=== PATIENT | male | born 1975 | race African-American/Black ===

== ENCOUNTER 2018-09-10 13:37 | Observation (INO) ==
[2018-09-10] MEDS ORDERED: Sodium Chloride 0.9% 1,000 ML PRIMARY IV ONE ×2 (13:55→15:17)
[2018-09-10] MEDS ORDERED: ASPIRIN 81 MG (BABY) CHEWABLE TABLET PO ONE (13:55)
--- NOTE | 2018-09-10 14:01 | EKG ---
[address] [address] Measurements Intervals [place] Rate: 116 P: 59 PA: 132 QRS: 86 QRSD: 90 T: -25 QT: 295 QTc: 364 Interpretive Statements SINUS TACHYCARDIA SEPTAL MYOCARDIAL INFARCTION OF INDETERMINATE AGE MODERATE T-WAVE ABNORMALITY, CONSIDER INFERIOR ISCHEMIA No previous ECG available for comparison Electronically Signed On 09-10-18 14:25:27 MST by Lonnie Thrasher [id number]
[2018-09-10 14:02] LABS: BASOPHILS # (AUTO) 0 10*3/UL; BASOPHILS % (AUTO) 0 % (0-1); EOSINOPHILS # (AUTO) 0.01 10*3/UL; EOSINOPHILS % (AUTO) 0.2 % (0-8); Hematocrit [HCT] 49.5 % (42.0-52.0); Hemoglobin [HGB] 16.9 g/dL (14.0-18.0); LYMPHOCYTES # (AUTO) 0.26 10*3/uL; MEAN CORPUSCULAR HEMOGLOBIN 30.6 PG (27-31); MEAN CORPUSCULAR HGB CONC 34.1 g/dL (33-37); MEAN CORPUSCULAR VOLUME 89.5 FL (80-90); MEAN PLATELET VOLUME 9.2 FL (7.4-12.2); MONOCYTES # (AUTO) 0.24 10*3/UL (0.3-0.8); MONOCYTES % (AUTO) 4.3 % (5-15); NEUTROPHILS % (AUTO) 90.4 % (50-80); RED BLOOD COUNT 5.53 10^6/uL (4.70-6.10)
[2018-09-10 14:07] LABS: BUN/CREATININE RATIO 17.05 (6-20); SERUM ALBUMIN 4.1 g/dL (3.5-4.8)
[2018-09-10 14:29] LABS: PLATELET MORPHOLOGY COMMENT NORMAL MORPHOLOGY (NORM); RBC MORPHOLOGY COMMENT SEE COMMENTS (NORM); WBC MORPHOLOGY COMMENT NORMAL MORPHOLOGY (NORM)
[2018-09-10] MEDS ORDERED: Sodium Chloride 0.9% 1,000 ML PRIMARY IV SCH (15:17)
[2018-09-10] MEDS ORDERED: NITROGLYCERIN 0.4 MG SL TAB (BOTTLE OF 3) SL PRN (15:17)
[2018-09-10] MEDS ORDERED: LIDOCAINE W/ SODIUM BICARB 0.5 ML SYR SUBD PRN (15:17)
[2018-09-10] MEDS ORDERED: ONDANSETRON 4 MG/2 ML VIAL IVP PRN (15:17)
[2018-09-10] MEDS ORDERED: CALCIUM CARBONATE 500 MG (TUMS) CHEWABLE TABLET PO PRN (15:17)
[2018-09-10 15:31] LABS: CHOL/HDL RATIO 2.15 RATIO (0-4.0)
--- NOTE | 2018-09-10 15:38 | PDOC ---
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 He states it feels somewhat pressure-like. It was associated with some nausea, vomiting, and diarrhea. He's been around some people at the influenza although he states he's not had any fevers or cough. He states that he is not sure if anything an emergency room helped. But he states it felt very similar to his ruptured aorta and came in for evaluation. In the emergency room, he was found to be in renal failure and it is not known if this is acute or chronic. His electrolytes looked okay. No other additional workup was done for pulmonary emboli despite an elevated d- dimer. As he's got on the floor I have ordered a VQ scan. His initial troponin and EKG are negative for acute coronary syndrome. He was given aspirin and nitroglycerin in the emergency room. He's not sure if that really helped. 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 Past Medical History Medical History: 1. Dissected aorta, status post repair. 2. Hypertension Surgical History: 1. Sternotomy with aortic dissection repair Pertinent Family History: He states his family history is negative for diabetes and heart disease. Past Social History: Single. Works here in [place] the [employer]. Has children that are described as healthy. Occasionally smokes tobacco, drinks alcohol, and admits to doing and see, cocaine, amphetamines from time to time. He states his last use was about a week ago. Tobacco Use: Current Some Day Smoker In the Past 12 Months, Have Used or Abuse Any of the Following Substance: Cocaine, Marijuana Alcohol Use: Occasionally Medication / Allergies Home Medications: Home Medications Medication Instructions Recorded Confirmed Type Carvedilol 12.5 mg PO DAILY 09/10/18 09/10/18 History Clonidine HCl 0.1 mg PO DAILY 09/10/18 09/10/18 History Metoprolol Succinate 25 mg PO DAILY 09/10/18 09/10/18 History Allergies/Adverse Reactions: Allergies Allergy/AdvReac Type Severity Reaction Status Date / Time Iodinated Contrast- Oral and Allergy Other : Verified 09/10/18 13:53 IV Dye See Comment nebivolol [From Bystolic] AdvReac Headache Verified 09/10/18 13:52 Review of Systems - Review of Systems All Systems: Reviewed & No Additional Complaints Except as Stated (I did a 12 point review systems and it was negative other than that discussed below and in the history of present illness.) - Genitourinary Genitourinary: REPORTS: Other (Complains of increased urinary frequency) Exam - Vitals Vital Signs: Vital Signs Temperature 96.8 F Temperature Source Temporal Artery Scan Pulse Rate [Pulse Oximeter] 118 Respiratory Rate 18 Blood Pressure [Left Arm] 169/111 Pulse Ox 96 Oxygen Delivery Method Room Air Height 5 ft 9 in Weight 226 lb 4 oz - General General Appearance: No Acute Distress, Cooperative - Head Head Exam: Normal Inspection, Normocephalic, Atraumatic - Eye Eye Exam: POSITIVE: No Scleral Icterus - ENT ENT Exam: POSITIVE: Mucous Membranes Moist - Neck Neck Exam: JVP is not Raised - Respiratory Respiratory Exam: POSITIVE: Clear to Auscultation - Bilaterally, Breathing Non Labored, Normal to Percussion and Palpation - Cardiovascular Cardiovascular Exam: POSITIVE: No Clicks, No Gallops, No Rubs, Systolic Murmur (Left upper sternal border, 2/6 intensity), No JVD Additional Cardiovascular Details: Chest pain is not reproduced with palpation - GI/Abdominal GI/Abdominal Exam: POSITIVE: Normal Bowel Sounds, Non Tender, Non Distended, Soft - Rectal Rectal Exam: POSITIVE: Deferred - External Exam: POSITIVE: Deferred Exam: POSITIVE: Deferred - Extremities Extremities Exam: POSITIVE: No Clubbing Present, No Edema Present, No Cyanosis Present - Back Back Exam: POSITIVE: No CVA Tenderness - Neurological Neurological Exam: POSITIVE: Alert, Oriented x 3, No Facial Droop, Speech Intact / Clear, Moves All Extremities Equally - Psychiatric Psychiatric Exam: POSITIVE: Normal Affect, Normal Mood - Integumentary Integumentary Exam: POSITIVE: Normal Color, Warm, Dry, Intact Additional Integumentary Exam Details: Skin tattoos noted Results - Labs CBC and BMP: 09/10/18 13:45 09/10/18 13:45 Additional Lab Results: Laboratory Results 09/10/18 09/10/18 09/10/18 13:45 13:45 13:45 WBC 5.53 RBC 5.53 Hgb 16.9 Hct 49.5 MCV 89.5 MCH 30.6 MCHC 34.1 RDW Std Deviation 46.7 RDW Coeff of Gagan 14.2 Plt Count 203 MPV 9.2 Immature Gran % (Auto) 0.4 Neut % (Auto) 90.4 H Lymph % (Auto) 4.7 L Gibson % (Auto) 4.3 L Eos % (Auto) 0.2 Baso % (Auto) 0 Immature Gran # (Auto) 0.02 Neut # (Auto) 5.00 Lymph # (Auto) 0.26 Gibson # (Auto) 0.24 L Eos # (Auto) 0.01 Baso # (Auto) 0 WBC Morphology Comment Normal morphology Plt Morphology Comment Normal morphology RBC Morph Comment See comments PT INR D-Dimer 1.01 H Sodium 140 Potassium 4.0 Chloride 103 Carbon Dioxide 28 Anion Gap 9 BUN 29 H Creatinine 1.7 H Estimated GFR 44 BUN/Creatinine Ratio 17.05 Glucose 110 Calculated Osmolality 296.0 H Calcium 9.5 Total Bilirubin 1.0 AST 39 ALT 28 Alkaline Phosphatase 81 CK-MB (CK-2) Troponin I Total Protein 7.6 Albumin 4.1 Globulin 3.5 Albumin/Globulin Ratio 1.10 L Triglycerides Cholesterol LDL Cholesterol, Calc VLDL Cholesterol HDL Cholesterol Cholesterol/HDL Ratio 09/10/18 09/10/18 09/10/18 13:45 13:45 13:45 WBC RBC Hgb Hct MCV MCH MCHC RDW Std Deviation RDW Coeff of Gagan Plt Count MPV Immature Gran % (Auto) Neut % (Auto) Lymph % (Auto) Gibson % (Auto) Eos % (Auto) Baso % (Auto) Immature Gran # (Auto) Neut # (Auto) Lymph # (Auto) Gibson # (Auto) Eos # (Auto) Baso # (Auto) WBC Morphology Comment Plt Morphology Comment RBC Morph Comment PT 10.9 INR 1.07 D-Dimer Sodium Potassium Chloride Carbon Dioxide Anion Gap BUN Creatinine Estimated GFR BUN/Creatinine Ratio Glucose Calculated Osmolality Calcium Total Bilirubin AST ALT Alkaline Phosphatase CK-MB (CK-2) 0.38 Troponin I < 0.012 Total Protein Albumin Globulin Albumin/Globulin Ratio Triglycerides 93 Cholesterol 138 LDL Cholesterol, Calc 55.400 VLDL Cholesterol 18 HDL Cholesterol 64 Cholesterol/HDL Ratio 2.15 - EKG Data -: EKG Interpreted by Me Rate: Tachycardia EKG Shows Normal: Sinus Rhythm Assessment and Plan - Patient Problems (1) Chest pain Current Visit: Yes Status: Acute Code(s): R07.9 - Chest pain, unspecified Qualifiers: Chest pain type: precordial pain Qualified Code(s): R07.2 - Precordial pain (2) Stimulant abuse Current Visit: Yes Status: Acute Code(s): F15.10 - Other stimulant abuse, uncomplicated (3) Hypertension Current Visit: Yes Status: Acute Code(s): I10 - Essential (primary) hy pertension Qualifiers: Hypertension type: unspecified Qualified Code(s): I10 - Essential (primary) hypertension (4) History of aortic dissection Current Visit: Yes Status: Acute Code(s): Z86.79 - Personal history of other diseases of the circulatory system (5) Acute renal failure Current Visit: Yes Status: Acute Code(s): N17.9 - Acute kidney failure, unspecified Qualifiers: Acute renal failure type: unspecified Qualified Code(s): N17.9 - Acute kidney failure, unspecified - Assessment / Plan Additional Assessment/Plan Details: This is highly likely stimulant-induced chest pain, which is not treated the same as typical ischemic chest pain. I don't think the patient is at risk for several hemorrhage, so I think the dose of aspirin was probably okay. That being said, I'm going to hold off on that until we see a little bit more of what we have going on. In addition, I don't know if this is truly an elevated d-dimer in the setting of a pulmonary emboli. I somewhat doubt this clinically as he is not hypoxic, and before we start him on Lovenox and like to prove the point so we will order a VQ scan, particularly with the patient's complaints of chest pain and not having one done in the emergency room. I will go ahead and start nitroglycerin and benzodiazepines. Given stimulant abuse/recent use, get a urine drug screen and hold off on beta blockers due to potential for sympathomimetic overload with the beta blockers in the setting of cocaine use in particular. I admonished the patient to try to quit his drug use as it could kill him. Get a CT scan of the abdomen and pelvis without any contrast to look at the kidneys to make sure there is no obstructive uropathy. Try to get records from [facility] in [place] regarding his surgical repair in apparent kidney dysfunction that was recently diagnosed there per the patient's history to me check troponin later this afternoon. I will get an echocardiogram in the morning. Long-term, the patient may benefit from nitroglycerin for his blood pressure con trol due to his lifestyle. If any elevated troponins developed, transfer the patient to a facility with capacity analyst.
[2018-09-10 15:42] LABS: AMPHETAMINE SCREEN POSITIVE (NEG); CANNABINOID SCREEN,URINE NEGATIVE (NEG); COCAINE SCREEN POSITIVE (NEG); METHADONE URINE SCREEN NEGATIVE (NEG); METHAMPHETAMINES SCREEN,URINE POSITIVE (NEG); OPIATE SCREEN,URINE NEGATIVE (NEG); URINE SAMPLE TYPE CLEAN CATCH URINE
[2018-09-10] MEDS ORDERED: LORazepam 2 MG/1 ML VIAL IVP PRN (15:45)
[2018-09-10] MEDS ORDERED: NITROGLYCERIN SR 2.5 MG CAPSULE PO ONE (15:46)
[2018-09-10] MEDS ORDERED: [UNRECOGNIZED DRUG - OTHER] TOPICAL ONE (15:46)
[2018-09-10] MEDS ORDERED: NITROGLYCERIN TOPICAL ONE (15:46)
[2018-09-10] MEDS: DIAZEPAM 10 MG/2 ML (5 MG/1 ML) CARPUJECT IVP PRN ×2 (16:04→22:39)
--- NOTE | 2018-09-10 16:10 | DI ---
XR CXR 1VW 09/10/2018 1:55 PM [place] [facility] [place] Pain Comparison: None. Findings: A single AP view of the chest is submitted. Images demonstrate normal aeration without focal consolidation. There is no large pneumothorax or ple ural effusion. The patient is status post median sternotomy. Heart size is at the upper limits of nor mal with mildly increased pulmonary vasculature. There are atheromatous calcifications in the arch of the tortuous thoracic aorta. The osseous structures are grossly unremarkable. Impression: 1. There is no dense consolidation, pleural effusion, or pneumothorax. 2. Borderline cardiomegaly with mildly increased pulmonary vasculature. This could be due to techniqu e versus early pulmonary edema in the setting of heart failure.
[2018-09-10 16:44] LABS: BILIRUBIN,URINE NEGATIVE (NEG); CLARITY,URINE CLEAR (CLEAR); COLOR,URINE YELLOW (Y); GLUCOSE, URINE (UA) NEGATIVE (NEG); OCCULT BLOOD,URINE NEGATIVE (NEG); PROTEIN,URINE 30 mg/dl (NEG)
[2018-09-10] MEDS ORDERED: ACETAMINOPHEN 325 MG TABLET PO PRN (16:45)
--- NOTE | 2018-09-10 16:53 | EKG ---
[address] [place] [address] Measurements Intervals [place] Rate: 122 P: 55 TX: 144 QRS: 72 QRSD: 86 T: -50 QT: 286 QTc: 358 Interpretive Statements SINUS TACHYCARDIA Possible SEPTAL MYOCARDIAL INFARCTION [40+ ms Q WAVE IN V1/V2], OF INDETERMINATE AGE MODERATE T-WAVE ABNORMALITY, CONSIDER INFERIOR ISCHEMIA [-0.1+ mV T WAVE IN II/aVF] Compared to ECG 09/10/2018 13:41:55 No significant changes Electronically Signed On 09-11-18 09:04:27 MST by Jaime Mack MD [id number]
[2018-09-10 17:07] LABS: RBC,URINE 0-2 /hpf; URINE SAMPLE TYPE CLEAN CATCH URINE; WBC,URINE 0-1
--- NOTE | 2018-09-10 18:11 | DI ---
CT Abdomen/Pelvis WO Contrast 09/10/2018 3:48 PM History: [facility] [place] ^renal failure, question obstruction or hydronephro ^no need for oral contrast, kidney obstruction Comparison: None. Technique: Imaging was performed with a multi-detector CT scanner. Data acquisition was obtained from the dome of the diaphragm through the pubic symphysis without oral or intravenous contrast material. Multiplanar reformations were performed. Findings: There are no radiopaque renal, ureteral, or bladder stones identified. There is no hydronep hrosis or perinephric stranding. Further evaluation of the abdomen shows normal CT appearance of the visualized portions of the liver, spleen, gallbladder, adrenal glands, and pancreas. There are multiple prominent loops of small bowel with stool and gas in the colon. The appendix is unremarkable. Vascular structures are intact. There is no free intraperitoneal air or fluid. There is a 2.5 cm fat-containing umbilical hernia. There ar e small bilateral fat-containing inguinal hernias. The lung bases are clear. Heart size is within normal limits. The patient is status post median roque otomy. The osseous structures are within normal limits for age. Impression: 1. No urolithiasis or evidence of obstructive uropathy. 2. There are multiple prominent loops of small bowel with stool and gas in the colon, a nonspecific b owel gas pattern.
[2018-09-10] MEDS ORDERED: NITROGLYCERIN SR 2.5 MG CAPSULE PO SCH (21:00)
--- NOTE | 2018-09-11 04:46 | PDOC ---
Chest Pain HPI - General Chief Complaint: Chest Pain Stated Complaint: CHEST PAIN Date Seen by Provider: 09/10/18 Time Seen by Provider: 13:40 Source: Patient Exam Limitations: POSITIVE: No limitations Treatment Prior to Arrival: REPORTS: None Nurse's Notes Reviewed & Considered: Yes - History of Present Illness Initial Comments: The patient is a 43-year-old male. Patient states that he drove through the night from [place]. As he was pulling into his driveway here in [place] he developed nausea with some poorly localized chest pain. He states he had several episodes of chest pain lasting several minutes throughout the night. He states he has had some intermittent chest pain for about the past week. Patient has a history of having had emergency surgery 2-3 no known fevers or chills. No dyspnea. He is on carvedilol, metoprolol and clonidine. Years ago in [facility], reportedly for a thoracic aneurysm. He underwent a thoracotomy. Patient smokes occasionally. He also smokes cocaine and last used cocaine about one week ago. Body Location Affected: REPORTS: Chest Timing: REPORTS: Intermittent, Getting Worse Duration: <24 hours Severity: Moderate Intermittent Episodes Lasting (minutes): 15 Persistent/Worse since (date): 09/09/18 Context: REPORTS: Other (Driving) Quality: REPORTS: "Pain" Radiation: REPORTS: None Associated Symptoms: REPORTS: Nausea Modifying Factors: improves with: None Reported Recently seen/treated/hospitalized: No Any Prior Injuries Related to Current Complaint?: No - Patient Home Medications Home Medications: Home Medications Carvedilol 12.5 mg PO DAILY 09/10/18 Clonidine HCl 0.1 mg PO DAILY 09/10/18 Metoprolol Succinate 25 mg PO DAILY 09/10/18 - Patient Allergies Allergies/Adverse Reactions: Allergies Allergy/AdvReac Type Severity Reaction Status Date / Time Iodinated Contrast- Oral and Allergy Other : Verified 09/10/18 13:53 IV Dye See Comment nebivolol [From Bystolic] AdvReac Headache Verified 09/10/18 13:52 Past Medical History - heen HEENT History: Denies History Cardiovascular History: Hypertension, Aneurysm, Other (please comment) Additional Cardiovasular History: AAA, PT REPORTS EMERGENCY AAA REPAIR 2 YEARS AGO AFTER SUDDEN ONSET OF CHEST PAIN Respiratory History: Denies History Gastrointestinal History: Denies History Genitourinary History: Denies History Endocrine History: Denies History Musculoskeletal History: Denies History Neurological History: Denies History Blood Disorders: Denies History Psychiatric History: Denies History Cancer History: Denies History In Past Year Been Physically Harmed or Verbally Threatened: No History of MDRO: No Tobacco Use: Current Some Day Smoker In the Past 12 Months, Have Used or Abuse Any Substance: Cocaine, Marijuana Previous Surgical History: Yes Type / Date of Surgery: AAA REPAIR 2017 Significant Family History: No pertinent family hx Past Medical History Reviewed: Reviewed - No Changes ROS - Limitations ROS Limitations: No Limitations Constitution: REPORTS: Weakness Cardiovascular: REPORTS: Chest Pain Respiratory: REPORTS: Denies Resp Symptoms Neurological: REPORTS: Denies Neuro Symptoms Gastrointestinal: REPORTS: Nausea Endocrine: REPORTS: Denies Symptoms Musculoskeletal: REPORTS: Denies MS Symptoms Genitourinary: REPORTS: Denies Symptoms Eyes: REPORTS: Denies Symptoms ENT: REPORTS: Denies Symptoms Skin: REPORTS: Denies Skin Symptoms Lympathic: REPORTS: Denies Lympathic Symptoms Immunologic: POSITIVE: Denies Symptoms Psychiatric: POSITIVE: Denies Psych Symptoms Chest Pain PE - General Appearance General Appearance: REPORTS: Alert, Cooperative, No Acute Distress, No Evidence of Trauma - HEENT HEENT: POSITIVE: Head Inspection Nml, Eyes Inspection Nml, Ears Inspection Nml, Nose Inspection Nml, Oral/Dental Inspect. Nml, Pharynx Inspect. Nml, PERRL, EOMI - Neck Neck: REPORTS: Normal Inspection, No Carotid Bruit - Respiratory Respiratory: REPORTS: No Respiratory Distress, Breath Sounds Normal, Chest Non- Tender - Cardiovascular Cardiovascular: REPORTS: Regular Rate and Rhythm, Heart Sounds Normal, Equal Pulses, Strong Pulses, No Murmur, No Gallop, No Friction Rub, No JVD Peripheral Pulses: Radial (R): 2+, Radial (L): 2+ - Abdomen Abdomen: Soft: (All Quadrants), Normal Bowel Sounds: (All Quadrants), Denies Tenderness: (All Quadrants), No Splenomegaly: (All Quadrants), No Hepatomegaly: (All Quadrants), No Guarding: (All Quadrants), No Rebound: (All Quadrants), No Palpable Pulse: (All Quadrants), No Palpabale Mass: (All Quadrants), No Distention: (All Quadrants), No Rigidity: (All Quadrants) - Skin Skin: REPORTS: Intact, Normal For Race, Warm, Dry, No Rash - Extremities Extremity: Non-Tender: (All Extremities), Normal ROM: (All Extremities), Normal Inspection: (All Extremities) - Neurological / Psychological Neurological: POSITIVE: 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, 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, 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 As Tested, Motor Normal, Sensation Normal Images - Complete Complete: 1 - Area of described discomfort/pain Chest Pain Progress - Results Reviewed by me Xrays/CTs/US Reviewed by me: Yes Discussed with Radiologist: No Radiology Findings: Sternotomy, otherwise normal Lab Results Reviewed by Me: Yes (d-dimer 1.01; creatinine 1.7, BUN 29, troponin less than 0.012) CBC and BMP: 09/10/18 13:45 09/10/18 13:45 Lab Results:: Laboratory Results 09/10/18 09/10/18 09/10/18 13:45 13:45 13:45 WBC 5.53 RBC 5.53 Hgb 16.9 Hct 49.5 MCV 89.5 MCH 30.6 MCHC 34.1 RDW Std Deviation 46.7 RDW Coeff of Gagan 14.2 Plt Count 203 MPV 9.2 Immature Gran % (Auto) 0.4 Neut % (Auto) 90.4 H Lymph % (Auto) 4.7 L Boyd % (Auto) 4.3 L Eos % (Auto) 0.2 Baso % (Auto) 0 Immature Gran # (Auto) 0.02 Neut # (Auto) 5.00 Lymph # (Auto) 0.26 Boyd # (Auto) 0.24 L Eos # (Auto) 0.01 Baso # (Auto) 0 WBC Morphology Comment Normal morphology Plt Morphology Comment Normal morphology RBC Morph Comment See comments PT INR D-Dimer 1.01 H Sodium 140 Potassium 4.0 Chloride 103 Carbon Dioxide 28 Anion Gap 9 BUN 29 H Creatinine 1.7 H Estimated GFR 44 BUN/Creatinine Ratio 17.05 Glucose 110 Calculated Osmolality 296.0 H Calcium 9.5 Total Bilirubin 1.0 AST 39 ALT 28 Alkaline Phosphatase 81 CK-MB (CK-2) Troponin I Total Protein 7.6 Albumin 4.1 Globulin 3.5 Albumin/Globulin Ratio 1.10 L Triglycerides Cholesterol LDL Cholesterol, Calc VLDL Cholesterol HDL Cholesterol Cholesterol/HDL Ratio TSH 09/10/18 09/10/18 09/10/18 13:45 13:45 13:45 WBC RBC Hgb Hct MCV MCH MCHC RDW Std Deviation RDW Coeff of Gagan Plt Count MPV Immature Gran % (Auto) Neut % (Auto) Lymph % (Auto) Boyd % (Auto) Eos % (Auto) Baso % (Auto) Immature Gran # (Auto) Neut # (Auto) Lymph # (Auto) Boyd # (Auto) Eos # (Auto) Baso # (Auto) WBC Morphology Comment Plt Morphology Comment RBC Morph Comment PT 10.9 INR 1.07 D-Dimer Sodium Potassium Chloride Carbon Dioxide Anion Gap BUN Creatinine Estimated GFR BUN/Creatinine Ratio Glucose Calculated Osmolality Calcium Total Bilirubin AST ALT Alkaline Phosphatase CK-MB (CK-2) 0.38 Troponin I < 0.012 Total Protein Albumin Globulin Albumin/Globulin Ratio Triglycerides 93 Cholesterol 138 LDL Cholesterol, Calc 55.400 VLDL Cholesterol 18 HDL Cholesterol 64 Cholesterol/HDL Ratio 2.15 TSH 09/10/18 13:45 WBC RBC Hgb Hct MCV MCH MCHC RDW Std Deviation RDW Coeff of Gagan Plt Count MPV Immature Gran % (Auto) Neut % (Auto) Lymph % (Auto) Boyd % (Auto) Eos % (Auto) Baso % (Auto) Immature Gran # (Auto) Neut # (Auto) Lymph # (Auto) Boyd # (Auto) Eos # (Auto) Baso # (Auto) WBC Morphology Comment Plt Morphology Comment RBC Morph Comment PT INR D-Dimer Sodium Potassium Chloride Carbon Dioxide Anion Gap BUN Creatinine Estimated GFR BUN/Creatinine Ratio Glucose Calculated Osmolality Calcium Total Bilirubin AST ALT Alkaline Phosphatase CK-MB (CK-2) Troponin I Total Protein Albumin Globulin Albumin/Globulin Ratio Triglycerides Cholesterol LDL Cholesterol, Calc VLDL Cholesterol HDL Cholesterol Cholesterol/HDL Ratio TSH 0.207 L EKG Interpreted/Reviewed By Me:: Yes (sinus tachycardia; Q waves V1 and V2 and possibly V3 T-wave inversions in V) EKG Interpretation:: POSITIVE: Normal Intervals. NEGATIVE: Normal Sinus Rhythm (Sinus tachycardia of 116/m), Normal Rate (Sinus tachycardia), Normal [facility], Normal QRS (Q waves V1, V2 and possibly V3), Normal ST/T (T-wave inversions V5 and V6) - Patient's Progress Pain Medication Addressed: POSITIVE: No (Pain resolved upon presentation to the emergency room) School/Work Release Addressed: POSITIVE: Not Applicable Re-Examine Time: 15:12 Re-Examine Comment: Patient given 4 chewable baby aspirin. Results of laboratory and radiologic studies discussed and results of electrocardiogram. Patient no distress at this time. Patient admitted by hospitalist for further evaluation and treatment. Status: POSITIVE: Improved, Re-Examined Quality Measure Initiative: CP/AMI: POSITIVE: EKG, ASA - Consult Consult (If Yes, Name of Consulting MD & Time Called): Yes (Dr. Leiva, hospitalist, [id number]) Consulting MD will see pt:: POSITIVE: [facility] [place] Counseled: POSITIVE: Patient, RE: Lab Results, RE: Radiology Results, RE: DX, RE: Need for F/U Patient Care Time - Estimated PCT Patient Care Time (In Minutes): 45 Vital Signs - VS Reviewed Vital Signs Reviewed: Yes Discharge Clinical Impression: Chest pain, Elevated d-dimer, Renal failure Discharge Disposition: Admit to Inpatient Condition: Stable Date Decision to Admit to Inpatient: 09/10/18 Time Decision to Admit to Inpatient: 14:50
[2018-09-11] MEDS: DIAZEPAM 10 MG/2 ML (5 MG/1 ML) CARPUJECT IVP PRN (07:45)
[2018-09-11] MEDS ORDERED: CloNIDine Tab 0.1 MG TABLET PO SCH (09:00)
--- NOTE | 2018-09-11 11:42 | DI ---
NM Pulmonary Perf Vent VQ 09/11/2018 8:00 AM [place] [facility] [place]chest pain, elevated D-dimer, renal failure Comparison: Chest x-ray from earlier the same day. Radiotracer: 45.0 mCi Tc-DTPA aerosol inhaled via nebulizer and 6.0 mCi Tc-MAA left antecubital IV Procedure: Planar ventilation/perfusion imaging was performed in multiple projections. Findings: Normal scintigraphy on ventilation and perfusion without focal defects. Impression: 1. Normal VQ scan.
[2018-09-11 11:56] VITALS: BP 162/94; RESP 24; TEMP 99.3; O2SAT 95
[2018-09-11] MEDS ORDERED: POTASSIUM CHLORIDE 20 MEQ TAB PO ONE (14:25)
--- NOTE | 2018-09-11 14:31 | DCSUMMARY ---
Hospitalization Summary Admit Date: 09/10/2018 Discharge Date: 09/11/18 Primary Diagnosis:: chest pain Hospital Course: Very pleasant 43-year-old male who had an aortic dissection in the past, who presented here with chest pain and was positive for cocaine, and amphetamines in the urine. He admitted Wilson to use. We admitted him and treated with nitroglycerin, and anxiolytics. This is due to paradoxical sympathomimetic feedback in the setting of beta blockers. His enzymes were negative in terms of troponins, and he had a negative VQ scan for PE. We could not do a CTA of the chest because of increased creatinine. We did do an echocardiogram which is pending at this time. The patient would like to get back in with a extracorporeal technician so we will help him establish a primary provider and have arranged an appointment for him to follow up on the results of his echocardiogram as well as see how he is doing in terms of hypertension on Imdur therapy. I told the patient that at that time, they could refer him to cardiology group in [place] even one that may see patient's done here in [place]. Overall, the patient was also discontinued on his metoprolol at the time of discharge. I like to limit his beta blockers given his known stimulant use. I do not know how serious he will be about quitting these drugs as he seemed quite pre-contemplative. Given that, I think it may be best to continue the patient on nitroglycerin. I'm going to hold off on aspirin due to potential accelerated hypertension and hypertensive bleeds in the setting of stimulant abuse. Today, no completes of chest pain, shortness breath, nausea or vomiting. He has a chronic, constant back pain that is unchanged in nature. I asked if he was ready to go home and he states "I'm ready to go home". Assessment and Plan: 1. As per discharge assessments noted 2. Disposition: Patient is discharged home 3. Condition on discharge, stable and improved. Long-term prognosis poor if the patient continues drug abuse. 4. Diet: regular diet 5. Activities: resume normal activities 6. Follow-Up: 1. We arranged an appointment at the medical office building for primary physician within the next 14 days. 7. Medications at the Time of Discharge: Home Medications Medication Instructions Recorded Confirmed Type Carvedilol 25 mg PO BID 09/10/18 09/11/18 History Clonidine HCl 0.2 mg PO BID 09/10/18 09/11/18 History Amlodipine Besylate 10 mg PO DAILY 09/11/18 09/11/18 History Losartan Potassium 100 mg PO DAILY 09/11/18 09/11/18 History Multivitamin Tab [Thera Tab] 1 tab PO DAILY 09/11/18 09/11/18 History This is an observation discharge. Exam - Vitals Vital Signs: Vital Signs Temperature 99.3 F Temperature Source Temporal Artery Scan Pulse Rate [Pulse Oximeter] 104 Pulse Rate 100 Respiratory Rate 24 Blood Pressure [Right Arm] 162/94 Blood Pressure [Left Arm] 169/111 Pulse Ox 95 Oxygen Flow Rate he is on room air Oxygen Delivery Method Nasal Cannula Height 5 ft 9 in Weight 226 lb 4 oz - General General Appearance: No Acute Distress, Cooperative - Eye Eye Exam: POSITIVE: No Scleral Icterus - ENT ENT Exam: POSITIVE: Mucous Membranes Moist - Neck Neck Exam: JVP is not Raised - Respiratory Respiratory Exam: POSITIVE: Clear to Auscultation - Bilaterally, Breathing Non Labored - Cardiovascular Cardiovascular Exam: POSITIVE: RRR, No Murmur, No Clicks, No Gallops, No Rubs, No JVD - GI/Abdominal GI/Abdominal Exam: POSITIVE: Normal Bowel Sounds, Non Tender, Non Distended, Soft - Extremities Extremities Exam: POSITIVE: No Clubbing Present, No Edema Present, No Cyanosis Present - Neurological Neurological Exam: POSITIVE: Alert, Oriented x 3, No Facial Droop, Speech Intact / Clear, Moves All Extremities Equally - Psychiatric Psychiatric Exam: POSITIVE: Normal Affect, Normal Mood Data Peritnent Studies: 09/10/18 09/10/18 09/10/18 13:45 13:45 13:45 WBC 5.53 Hgb 16.9 Hct 49.5 Plt Count 203 Neut % (Auto) 90.4 H PT INR D-Dimer 1.01 H Sodium Potassium Chloride Carbon Dioxide Anion Gap BUN Creatinine 1.7 H Estimated GFR Glucose Calculated Osmolality Calcium 9.5 Total Bilirubin 1.0 AST 39 ALT 28 Alkaline Phosphatase 81 CK-MB (CK-2) Troponin I Triglycerides Cholesterol LDL Cholesterol, Calc VLDL Cholesterol HDL Cholesterol Cholesterol/HDL Ratio Urine Protein Amphetamines Screen U Methamphetamines Scrn Cocaine Screen 09/10/18 09/10/18 09/10/18 13:45 13:45 13:45 WBC Hgb Hct Plt Count Neut % (Auto) PT 10.9 INR 1.07 D-Dimer Sodium Potassium Chloride Carbon Dioxide Anion Gap BUN Creatinine Estimated GFR Glucose Calculated Osmolality Calcium Total Bilirubin AST ALT Alkaline Phosphatase CK-MB (CK-2) 0.38 Troponin I < 0.012 Triglycerides 93 Cholesterol 138 LDL Cholesterol, Calc 55.400 VLDL Cholesterol 18 HDL Cholesterol 64 Cholesterol/HDL Ratio 2.15 Urine Protein Amphetamines Screen U Methamphetamines Scrn Cocaine Screen 09/10/18 09/10/18 09/10/18 15:23 15:23 16:45 WBC Hgb Hct Plt Count Neut % (Auto) PT INR D-Dimer Sodium Potassium Chloride Carbon Dioxide Anion Gap BUN Creatinine Estimated GFR Glucose Calculated Osmolality Calcium Total Bilirubin AST ALT Alkaline Phosphatase CK-MB (CK-2) Troponin I < 0.012 Triglycerides Cholesterol LDL Cholesterol, Calc VLDL Cholesterol HDL Cholesterol Cholesterol/HDL Ratio Urine Protein 30 A Amphetamines Screen Positive H U Methamphetamines Scrn Positive H Cocaine Screen Positive H 09/10/18 09/11/18 09/11/18 23:16 05:00 13:49 WBC Hgb Hct Plt Count Neut % (Auto) PT INR D-Dimer Sodium 138 Potassium 3.5 L Chloride 102 Carbon Dioxide 29 Anion Gap 7 BUN 18 Creatinine 1.5 Estimated GFR 51 Glucose 120 H Calculated Osmolality 288.0 Calcium 8.5 L Total Bilirubin AST ALT Alkaline Phosphatase CK-MB (CK-2) Troponin I < 0.012 < 0.012 Triglycerides Cholesterol LDL Cholesterol, Calc VLDL Cholesterol HDL Cholesterol Cholesterol/HDL Ratio Urine Protein Amphetamines Screen U Methamphetamines Scrn Cocaine Screen Procedures: [address] [facility]. [facility] [place] [address] PH: DD: [phone] FAX: [phone] ~DIAGNOSTIC IMAGING REPORT~ Patient: SWAPNA PAULINO : 1975 Sex: M Age: 43 Exam Name: CT Abdomen/Pelvis WO Contrast Exam Date: 09/10/18 Report # : [id number] CPT Code: 27703 EMR/MR #: [id number] Ordering: LEXII RODRIGUEZ Admiting: LEXII RODRIGUEZ DO Primary: NONE,NONE Attending: LEXII RODRIGUEZ DO Signed CT Abdomen/Pelvis WO Contrast 09/10/2018 3:48 PM History: [facility] ^renal failure, question obstruction or hydronephro ^no need for oral contrast, kidney obstruction Comparison: None. Technique: Imaging was performed with a multi-detector CT scanner. Data acquisition was obtained from the dome of the diaphragm through the pubic symphysis without oral or intravenous contrast material. Multiplanar reformations were performed. Findings: There are no radiopaque renal, ureteral, or bladder stones identified. There is no hydronephrosis or perinephric stranding. Further evaluation of the abdomen shows normal CT appearance of the visualized portions of the liver, spleen, gallbladder, adrenal glands, and pancreas. There are multiple prominent loops of small bowel with stool and gas in the colon. The appendix is unremarkable. Vascular structures are intact. There is no free intraperitoneal air or fluid. There is a 2.5 cm fat-containing umbilical hernia. There are small bilateral fat-containing inguinal hernias. The lung bases are clear. Heart size is within normal limits. The patient is status post median sternotomy. The osseous structures are within normal limits for age. Impression: 1. No urolithiasis or evidence of obstructive uropathy. 2. There are multiple prominent loops of small bowel with stool and gas in the colon, a nonspecific bowel gas pattern. Dictated By: 09/10/18 1752 BETO WILLIAMSON MD. Signed By: 09/10/18 1819 BETO WILLIAMSON MD. [address] [facility] [place] [address] PH: DD: [phone] FAX: [phone] ~DIAGNOSTIC IMAGING REPORT~ Patient: SWAPNA PAULINO : 1975 Sex: M Age: 43 Exam Name: NM Pulmonary Perf & Vent VQ Exam Date: 09/11/18 Report # : [id number] CPT Code: 62301 EMR/MR #: [id number] Ordering: LEXII RODRIGUEZ Admiting: LEXII RODRIGUEZ DO Primary: NONE,NONE Attending: LEXII RODRIGUEZ DO Signed NM Pulmonary Perf Vent VQ 09/11/2018 8:00 AM History: [facility] ^chest pain, elevated D-dimer, renal failure Comparison: Chest x-ray from earlier the same day. Radiotracer: 45.0 mCi Tc-DTPA aerosol inhaled via nebulizer and 6.0 mCi Tc-MAA left antecubital IV Procedure: Planar ventilation/perfusion imaging was performed in multiple projections. Findings: Normal scintigraphy on ventilation and perfusion without focal defects. Impression: 1. Normal VQ scan. Dictated By: 09/11/18 1133 BETO WILLIAMSON MD. Signed By: 09/11/18 1142 BETO WILLIAMSON MD. Patient Problems - Patient Problem List (1) Chest pain Current Visit: Yes Status: Resolved Code(s): R07.9 - Chest pain, unspecified Qualifiers: Chest pain type: precordial pain Qualified Code(s): R07.2 - Precordial pain Category: Medical (2) Stimulant abuse Current Visit: Yes Status: Acute Code(s): F15.10 - Other stimulant abuse, uncomplicated Category: Medical (3) Hypertension Current Visit: Yes Status: Acute Code(s): I10 - Essential (primary) hypertension Qualifiers: Hypertension type: unspecified Qualified Code(s): I10 - Essential (primary) hypertension Category: Medical (4) History of aortic dissection Current Visit: Yes Status: Acute Code(s): Z86.79 - Personal history of other diseases of the circulatory system Category: Medical (5) Acute renal failure Current Visit: Yes Status: Resolved Code(s): N17.9 - Acute kidney failure, unspecified Qualifiers: Acute renal failure type: unspecified Qualified Code(s): N17.9 - Acute kidney failure, unspecified Category: Medical
== END 2018-09-11 14:53 | disposition home or self-care (01) ==
LOC: MED/SURG 13:37 → ER 13:37 → MED/SURG 15:12
PROVIDERS: ADMIT Family Medicine; ATTEND Family Medicine